=== PATIENT | male | born 1995 | race Two or more races ===

== ENCOUNTER 2018-04-14 18:01 | Emergency (ER) | payer SELFPAY ==
[~2018-04-14] VITALS: Ht 170.2 cm; Wt 99.8 kg
[2018-04-14 18:12] VITALS: BP 157/89
[2018-04-14] MEDS ORDERED: NAPROXEN 500 MG TABLET PO STA (18:30)
--- NOTE | 2018-04-14 18:30 | PHYS DOC ---
Past Medical History Past Medical History: No Pertinent History Past Surgical History: No Surgical History Alcohol Use: None Drug Use: None Adult General Chief Complaint Chief Complaint: WRIST PAIN HPI HPI Patient is a 22 year old male who presents to the ER with complaints of left wrist pain since he rolled onto his wrist while playing football yesterday. Pt denies any numbness or tingling. States that he has pain when he moves his wrist. Pt denies any pain or swelling of left hand. He has been applying ice for relief of pain, has not taken any medications for pain. Review of Systems Review of Systems Constitutional: Denies fever or chills [] Musculoskeletal: Denies back pain; reports L wrist pain Integument: Denies rash or skin lesions [] Neurologic: Denies headache, focal weakness or sensory changes [] All other systems were reviewed and found to be within normal limits, except as documented in this note. Current Medications Current Medications Current Medications Medications (Trade) Dose Ordered Sig/Ellie Start Time Stop Time Status Last Admin Dose Admin Naproxen (Naprosyn) 500 mg 1X STAT 04/14/18 18:30 04/14/18 18:32 DC 04/14/18 18:43 500 MG Allergies Allergies Allergies Coded Allergies Type Severity Reaction Last Updated Verified No Known Drug Allergies 04/14/18 No Physical Exam Physical Exam Constitutional: Well developed, well nourished, no acute distress, non-toxic appearance, obese. [] HENT: Normocephalic, atraumatic, bilateral external ears normal, nose normal. [] Eyes: PERRLA, conjunctiva normal, no discharge. [] Skin: Warm, dry, no erythema, no rash. [] Extremities: No cyanosis, no clubbing; L wrist pain with ROM, 1+ swelling and tenderness to L wrist Neurologic: Alert and oriented X 3, normal motor function, normal sensory function, no focal deficits noted. [] Psychologic: Affect normal, judgement normal, mood normal. [] Current Patient Data Vital Signs Vital Signs Date Time Temp Pulse Resp B/P (MAP) Pulse Ox O2 Delivery O2 Flow Rate FiO2 04/14/18 18:12 98.5 73 18 157/89 (111) 99 Room Air 98.5 EKG EKG [] Radiology/Procedures Radiology/Procedures PROCEDURE: WRIST 3V LEFT EXAM: WRIST 3V LEFT. HISTORY: Left wrist pain after injury. COMPARISON: None. FINDINGS: No fractures are identified. Radiocarpal and intercarpal joint spaces and alignment are maintained. IMPRESSION: 1. No fracture.[] Course & Med Decision Making Course & Med Decision Making Pertinent Labs and Imaging studies reviewed. (See chart for details) Dx: L wrist pain, L wrist sprain Xray of L wrist was negative for any acute fx. A velcro wrist splint was applied. Rx for naproxen, pt advised to follow up with Dr. Burk if sx persist. Patient verbalized an understanding of home care, medications, follow- up, and return to ED instructions and was in agreement with the plan of care. [] Dragon Disclaimer Dragon Disclaimer This electronic medical record was generated, in whole or in part, using a voice recognition dictation system. Departure Departure Impression: Primary Impression: Left wrist pain Additional Impression: Left wrist sprain Disposition: HOME, SELF-CARE Condition: STABLE Referrals: JADIEL BURK II, MD Patient Instructions: Wrist Pain, [id number] Additional Instructions: Fill prescription(s) and use as directed. Recommend application of ice, elevation, and rest of affected extremity. Wear the splint that was placed until follow up appointment. Return to the ER if your symptoms worsen. Scripts Naproxen (NAPROXEN) 500 Mg Tablet 500 MG PO BID PRN for PAIN for 10 Days, #20 TAB 0 Refills Prov: VALDO STRONG APRN 04/14/18 Splinting Splinting : Location: L wrist Pre-Made Type: velcro Splint: wrist Pre-Proc Neuro Vasc Exam: normal Post-Proc Neuro Vasc Exam: normal, unchanged from pre-exam Problem Qualifiers Additional Impression: Left wrist sprain Encounter type: initial encounter Qualified Codes: S63.502A - Unspecified sprain of left wrist, initial encounter VALDO STRONG WEB COORDINATOR Apr 14, 2018 18:30
--- NOTE | 2018-04-14 19:41 | RAD ---
EXAM: WRIST 3V LEFT. HISTORY: Left wrist pain after injury. COMPARISON: None. FINDINGS: No fractures are identified. Radiocarpal and intercarpal joint spaces and alignment are maintained. IMPRESSION: 1. No fracture. Electronically signed by: Rajwinder Cunha MD (04/14/2018 7:38 PM) [facility]
[2018-04-14] MEDS ORDERED: NAPR-514 PO (19:57)
== END 2018-04-14 20:04 | disposition home or self-care (01) ==
LOC: ER 18:01
DX: S63.502A Unspecified sprain of left wrist, initial encounter (principal); X58.XXXA Exposure to other specified factors, initial encounter; Y93.61 Activity, american tackle football; Y92.89 Other specified places as the place of occurrence of the external cause; Y99.8 Other external cause status
CPT/HCPCS: 29125; 73110; 99284